=== PATIENT | female | born 1975 | race American Indian/Alaskan Native ===

== ENCOUNTER 2018-04-06 23:25 | Inpatient (IN) | payer MEDICAID ==
[2018-04-06] MEDS ORDERED: ASPIRIN PO ONE (23:40)
[2018-04-07 00:29] LABS: Basophils # (Auto) 0.1 K/mm3 (0.0-0.1); Basophils % (Auto) 0.8 % (0.0-1.8); Eosinophils # (Auto) 0.2 K/mm3 (0.0-0.4); Eosinophils % (Auto) 1.9 % (0.0-4.3); Hematocrit 40.1 % (30.3-42.9); Hemoglobin 14.2 gm/dl (10.1-14.3); Lymphocytes # (Auto) 3.5 K/mm3 (1.2-5.4); Mean Corpuscular HGB Conc 35 % (30-34); Mean Corpuscular Volume 84 fl (79-97); Monocytes # (Auto) 0.3 K/mm3 (0.0-0.8); Monocytes % (Auto) 4.2 % (0.0-7.3); Platelet Count 333 K/mm3 (140-440); Red Blood Count 4.78 M/mm3 (3.65-5.03); Red Cell Distribution Width 12.8 % (13.2-15.2)
[2018-04-07 00:45] LABS: BUN/Creatinine Ratio 21; Blood Urea Nitrogen 15 mg/dL (7-17); Calcium 10.1 mg/dL (8.4-10.2); Hemolysis Index 8
[2018-04-07] MEDS ORDERED: NITRO-BID 2% TP ONE (00:57)
--- NOTE | 2018-04-07 01:02 | Emergency Department Report ---
HPI - General Chief Complaint: Chest Pain Time Seen by Provider: 04/07/18 00:48 - HPI HPI: Room 10 The patient is a 43-year-old female presenting with chief complaint of chest pain. Patient states 6 months ago she had an episode of palpitations and near syncope. Last month she states she had left-sided chest pain sharp for 2 days but then it resolved. This evening the patient states she became short of breath and dizzy with palpitations. Patient states she's had intermittent left- sided chest pain tonight that is sharp and stabbing in nature. Patient denies nausea/vomiting, diaphoresis or pleurisy. Patient denies cough. The patient states she's never had a stress test or cardiac catheterization Location: Left chest Duration: [See above] Quality: Sharp Severity: Currently 0/10 Modifying factors: [see above] Context: [see above] Mode of transportation: [not driving] ED Past Medical Hx - Past Medical History Previous Medical History?: Yes Hx Hypertension: Yes Hx Psychiatric Treatment: Yes (anxiety, panic attacks. bipolar.) - Surgical History Past Surgical History?: Yes Additional Surgical History: tubal ligation - Family History Family history: no significant - Social History Smoking Status: Former Smoker (none 2 years) Substance Use Type: None (denies illicit drug use) - Medications Home Medications: Home Medications Medication Instructions Recorded Confirmed Last Taken Type Ciprofloxacin HCl [Ciprofloxacin 500 mg PO Q12H #14 tab 03/26/15 Unknown Rx TAB] Fluconazole [Diflucan TAB] 150 mg PO ONCE #1 tablet 03/26/15 Unknown Rx Cyclobenzaprine [Flexeril] 10 mg PO TID PRN #20 tablet 07/10/15 Unknown Rx HYDROcodone/APAP 5-325 [[place] 1 each PO Q6HR PRN #10 tablet 07/10/15 Unknown Rx 5/325] Ibuprofen [Motrin 800 MG tab] 800 mg PO Q8HR PRN #30 tablet 07/10/15 Unknown Rx ED Review of Systems ROS: Stated complaint: ANXIETY Other details as noted in HPI Constitutional: denies: diaphoresis Eyes: denies: eye pain ENT: denies: throat pain Respiratory: shortness of breath Cardiovascular: chest pain, palpitations Endocrine: no symptoms reported Gastrointestinal: denies: nausea, vomiting Genitourinary: denies: dysuria Musculoskeletal: denies: back pain Neurological: denies: headache Physical Exam - Physical Exam Vital Signs: Vital Signs 04/06/18 23:31 Temperature 97.4 F L Pulse Rate 95 H Respiratory 18 Rate Blood Pressure 146/90 O2 Sat by Pulse 100 Oximetry Physical Exam: GENERAL: The patient is well-developed well-nourished female sitting on stretcher not appearing to be in acute distress. [] HEENT: Normocephalic. Atraumatic. Extraocular motions are intact. Patient has moist mucous membranes. NECK: Supple. Trachea midline CHEST/LUNGS: Clear to auscultation. There is no respiratory distress noted. HEART/CARDIOVASCULAR: Regular. There is no tachycardia. There is no gallop rub or murmur. ABDOMEN: Abdomen is soft, nontender. Patient has normal bowel sounds. There is no abdominal distention. SKIN: There is no rash. There is no diaphoresis. NEURO: The patient is awake, alert, and oriented. The patient is cooperative. The patient has normal speech MUSCULOSKELETAL: There is no evidence of acute injury. ED Course Vital Signs 04/06/18 23:31 Temperature 97.4 F L Pulse Rate 95 H Respiratory 18 Rate Blood Pressure 146/90 O2 Sat by Pulse 100 Oximetry ED Medical Decision Making - Lab Data Result diagrams: 04/07/18 00:03 04/07/18 00:03 Laboratory Tests 04/07/18 04/07/18 04/07/18 00:03 00:03 00:59 WBC 8.0 RBC 4.78 Hgb 14.2 Hct 40.1 MCV 84 MCH 30 MCHC 35 H RDW 12.8 L Plt Count 333 Lymph % (Auto) 44.0 H [place] % (Auto) 4.2 Eos % (Auto) 1.9 Baso % (Auto) 0.8 Lymph # 3.5 [place] # 0.3 Eos # 0.2 Baso # 0.1 Seg Neutrophils % 49.1 Seg Neutrophils # 3.9 D-Dimer 244.91 H Sodium 137 Potassium 3.8 Chloride 94.1 L Carbon Dioxide 29 Anion Gap 18 BUN 15 Creatinine 0.7 Estimated GFR > 60 BUN/Creatinine Ratio 21 Glucose 131 H Calcium 10.1 Troponin T < 0.010 - EKG Data -: EKG Interpreted by Ia EKG shows normal: sinus rhythm Rate: normal - EKG Data When compared to previous EKG there are: previous EKG unavailable Interpretation: nonspecific ST-T wave antelmo (T-wave inversion in lead V2) - Radiology Data Radiology results: image reviewed (chest x-ray) interpreted by me: Chest x-ray-no focal infiltrates, no pneumothorax - Differential Diagnosis ACS, PE, anxiety, pericarditis, GERD Critical care attestation.: If time is entered above; I have spent that time in minutes in the direct care of this critically ill patient, excluding procedure time. ED Disposition Clinical Impression: Chest pain, Shortness of breath Disposition: 09 OP ADMIT IP TO THIS HOSP Is pt being admited?: Yes Does the pt Need Aspirin: Yes Condition: Fair Instructions: Chest Pain (ED) Time of Disposition: 02:12 (hospitalist paged (Dr. Sujatha Adrian))
--- NOTE | 2018-04-07 02:19 | XRay Report ---
FINAL REPORT PROCEDURE: XR CHEST 1V AP TECHNIQUE: Chest radiograph anteroposterior view. CPT 67228 HISTORY: chest pain COMPARISON: No prior studies are available for comparison. FINDINGS: Heart: Normal. Mediastinum/Vessels: Normal. Lungs/Pleural space: Normal. Bony thorax: No acute osseous abnormality. Life support devices: None. IMPRESSION: No acute cardiopulmonary abnormality.
[2018-04-07] MEDS ORDERED: ZOFRAN IV PRN (03:15)
[2018-04-07] MEDS ORDERED: SODIUM CHLORIDE FLUSH SYRINGE 10 ML IV PRN ×2 (03:15)
[2018-04-07] MEDS ORDERED: TYLENOL PO PRN (03:15)
--- NOTE | 2018-04-07 04:00 | History and Physical Report ---
<FATOUMATA GAO - Last Filed: 04/07/18 04:00> History of Present Illness Date of examination: 04/07/18 Date of admission: 04/07/18 Chief complaint: chest pain and palpitation History of present illness: Pt is a 43-year-old female with PMHx of anxiety, bipolar depression, HTN, who presents to the ER with c/o chest pain a few hours prior to coming to the ER. Pt states that she woke up in the middle of the night with chest pain and pa lpitation, the pain was sudden and sharp, located on the left side of the chest with no radiation. Pt states that she has a history of of anxiety and panic attack, she had an episode of palpitation and syncope 6 months ago but this time is different because the chest pain was accompanied with palpitation, dizziness and SOB. Patient denies radiation of the pain to the left arm, she denies numbness, denies syncope, denies diaphoresis, denies nausea denies vomiting, denies recent illness, denies fever or chills. Pt was evaluated in the ER, EKG showed no STEMI criteria, cardiac enzyme is negative, pt was admitted to the ER for further evaluation and treatment. Past History Past Medical History: other (anxiet, bipolar depression, panic attack) Past Surgical History: No surgical history Social history: no significant social history Family history: no significant family history Medications and Allergies Allergies Allergy/AdvReac Type Severity Reaction Status Date / Time latex Allergy Unknown Verified 04/06/18 23:39 oxycodone Allergy Unknown Verified 04/06/18 23:39 sulfamethoxazole Allergy Unknown Verified 04/06/18 23:39 [From Bactrim] trimethoprim [From Bactrim] Allergy Unknown Verified 04/06/18 23:39 Home Medications Medication Instructions Recorded Confirmed Last Taken Type Ciprofloxacin HCl [Ciprofloxacin 500 mg PO Q12H #14 tab 03/26/15 Unknown Rx TAB] Fluconazole [Diflucan TAB] 150 mg PO ONCE #1 tablet 03/26/15 Unknown Rx Cyclobenzaprine [Flexeril] 10 mg PO TID PRN #20 tablet 07/10/15 Unknown Rx HYDROcodone/APAP 5-325 [[place] 1 each PO Q6HR PRN #10 tablet 07/10/15 Unknown Rx 5/325] Ibuprofen [Motrin 800 MG tab] 800 mg PO Q8HR PRN #30 tablet 07/10/15 Unknown Rx Active Meds: Active Medications Acetaminophen (Tylenol) 650 mg PO Q4H PRN PRN Reason: Pain MILD(1-3)/Fever >100.5/CARDOZO Ondansetron HCl (Zofran) 4 mg IV Q8H PRN PRN Reason: Nausea And Vomiting Sodium Chloride (Sodium Chloride Flush Syringe 10 Ml) 10 ml IV BID J LUIS Sodium Chloride (Sodium Chloride Flush Syringe 10 Ml) 10 ml IV PRN PRN PRN Reason: LINE FLUSH Sodium Chloride (Sodium Chloride Flush Syringe 10 Ml) 10 ml IV PRN PRN PRN Reason: LINE FLUSH Review of Systems Constitutional: weight loss Integumentary: deferred Psychiatric: anxiety, depression, anxiety attacks Exam - Constitutional Vitals: Temp Pulse Resp BP Pulse Ox 97.4 F L 71 21 136/76 100 04/06/18 23:31 04/07/18 01:28 04/07/18 01:28 04/07/18 01:28 04/07/18 01:28 General appearance: Present: no acute distress - EENT Eyes: Present: EOM intact ENT: hearing intact - Neck Neck: Present: supple, normal ROM - Respiratory Respiratory effort: normal Respiratory: bilateral: CTA - Cardiovascular Rhythm: regular - Extremities Extremities: no ischemia Peripheral Pulses: within normal limits - Abdominal General gastrointestinal: Present: deferred - Rectal Rectal Exam: deferred - Integumentary Integumentary: Present: warm, dry - Musculoskeletal Musculoskeletal: strength equal bilaterally - Psychiatric Psychiatric: appropriate mood/affect, cooperative - Neurologic Neurologic: focal deficits, moves all extremities Results - Labs CBC & Chem 7: 04/07/18 00:03 04/07/18 00:03 Labs: Laboratory Last Values WBC 8.0 K/mm3 (4.5-11.0) 04/07/18 00:03 RBC 4.78 M/mm3 (3.65-5.03) 04/07/18 00:03 Hgb 14.2 gm/dl (10.1-14.3) 04/07/18 00:03 Hct 40.1 % (30.3-42.9) 04/07/18 00:03 MCV 84 fl (79-97) 04/07/18 00:03 MCH 30 pg (28-32) 04/07/18 00:03 MCHC 35 % (30-34) H 04/07/18 00:03 RDW 12.8 % (13.2-15.2) L 04/07/18 00:03 Plt Count 333 K/mm3 (140-440) 04/07/18 00:03 Lymph % (Auto) 44.0 % (13.4-35.0) H 04/07/18 00:03 [place] % (Auto) 4.2 % (0.0-7.3) 04/07/18 00:03 Eos % (Auto) 1.9 % (0.0-4.3) 04/07/18 00:03 Baso % (Auto) 0.8 % (0.0-1.8) 04/07/18 00:03 Lymph # 3.5 K/mm3 (1.2-5.4) 04/07/18 00:03 [place] # 0.3 K/mm3 (0.0-0.8) 04/07/18 00:03 Eos # 0.2 K/mm3 (0.0-0.4) 04/07/18 00:03 Baso # 0.1 K/mm3 (0.0-0.1) 04/07/18 00:03 Seg Neutrophils % 49.1 % (40.0-70.0) 04/07/18 00:03 Seg Neutrophils # 3.9 K/mm3 (1.8-7.7) 04/07/18 00:03 D-Dimer 244.91 ng/mlDDU (0-234) H 04/07/18 00:59 Sodium 137 mmol/L (137-145) 04/07/18 00:03 Potassium 3.8 mmol/L (3.6-5.0) 04/07/18 00:03 Chloride 94.1 mmol/L (98-107) L 04/07/18 00:03 Carbon Dioxide 29 mmol/L (22-30) 04/07/18 00:03 Anion Gap 18 mmol/L 04/07/18 00:03 BUN 15 mg/dL (7-17) 04/07/18 00:03 Creatinine 0.7 mg/dL (0.7-1.2) 04/07/18 00:03 Estimated GFR > 60 ml/min 04/07/18 00:03 BUN/Creatinine Ratio 21 % 04/07/18 00:03 Glucose 131 mg/dL (65-100) H 04/07/18 00:03 Calcium 10.1 mg/dL (8.4-10.2) 04/07/18 00:03 Troponin T < 0.010 ng/mL (0.00-0.029) 04/07/18 00:03 Assessment and Plan Assessment and plan: 1. Chest pain r/o ACS 2. Bipolar disorder 3. Panic attack 4.Hypertension Plan: Admit to [facility] for chest pain Continue CE Q6hr x2 more Nitro PRN for chest pain Repeat EKG in am Morphine PRN for chest pain Xanax PRN for anxiety Resume home meds CT chest pending Stress test in am Further plan per hospital course Pt's condition and plan of care discussed with with Dr Adrian Advance Directives: Yes VTE prophylaxis?: Mechanical Plan of care discussed with patient/family: Yes <MAKEDA ADRIAN - Last Filed: 04/07/18 05:17> History of Present Illness Date of admission: 04/07/18 03:38 Medications and Allergies Active Meds: Active Medications Acetaminophen (Tylenol) 650 mg PO Q4H PRN PRN Reason: Pain MILD(1-3)/Fever >100.5/CARDOZO Ondansetron HCl (Zofran) 4 mg IV Q8H PRN PRN Reason: Nausea And Vomiting Sodium Chloride (Sodium Chloride Flush Syringe 10 Ml) 10 ml IV BID J LUIS Sodium Chloride (Sodium Chloride Flush Syringe 10 Ml) 10 ml IV PRN PRN PRN Reason: LINE FLUSH Sodium Chloride (Sodium Chloride Flush Syringe 10 Ml) 10 ml IV PRN PRN PRN Reason: LINE FLUSH Exam - Constitutional Vitals: Temp Pulse Resp BP Pulse Ox 97.4 F L 71 21 136/76 100 04/06/18 23:31 04/07/18 01:28 04/07/18 01:28 04/07/18 01:28 04/07/18 01:28 Results - Labs CBC & Chem 7: 04/07/18 03:50 04/07/18 03:50 Labs: Laboratory Last Values WBC 7.8 K/mm3 (4.5-11.0) 04/07/18 03:50 RBC 4.85 M/mm3 (3.65-5.03) 04/07/18 03:50 Hgb 14.0 gm/dl (10.1-14.3) 04/07/18 03:50 Hct 41.9 % (30.3-42.9) 04/07/18 03:50 MCV 86 fl (79-97) 04/07/18 03:50 MCH 29 pg (28-32) 04/07/18 03:50 MCHC 33 % (30-34) 04/07/18 03:50 RDW 12.9 % (13.2-15.2) L 04/07/18 03:50 Plt Count 292 K/mm3 (140-440) 04/07/18 03:50 Lymph % (Auto) 29.7 % (13.4-35.0) 04/07/18 03:50 [place] % (Auto) 5.0 % (0.0-7.3) 04/07/18 03:50 Eos % (Auto) 2.4 % (0.0-4.3) 04/07/18 03:50 Baso % (Auto) 1.1 % (0.0-1.8) 04/07/18 03:50 Lymph # 2.3 K/mm3 (1.2-5.4) 04/07/18 03:50 [place] # 0.4 K/mm3 (0.0-0.8) 04/07/18 03:50 Eos # 0.2 K/mm3 (0.0-0.4) 04/07/18 03:50 Baso # 0.1 K/mm3 (0.0-0.1) 04/07/18 03:50 Seg Neutrophils % 61.8 % (40.0-70.0) 04/07/18 03:50 Seg Neutrophils # 4.9 K/mm3 (1.8-7.7) 04/07/18 03:50 D-Dimer 244.91 ng/mlDDU (0-234) H 04/07/18 00:59 Sodium 133 mmol/L (137-145) L 04/07/18 03:50 Potassium 3.4 mmol/L (3.6-5.0) L 04/07/18 03:50 Chloride 92.8 mmol/L (98-107) L 04/07/18 03:50 Carbon Dioxide 26 mmol/L (22-30) 04/07/18 03:50 Anion Gap 18 mmol/L 04/07/18 03:50 BUN 14 mg/dL (7-17) 04/07/18 03:50 Creatinine 0.7 mg/dL (0.7-1.2) 04/07/18 03:50 Estimated GFR > 60 ml/min 04/07/18 03:50 BUN/Creatinine Ratio 20 % 04/07/18 03:50 Glucose 100 mg/dL (65-100) 04/07/18 03:50 Calcium 9.4 mg/dL (8.4-10.2) 04/07/18 03:50 Troponin T < 0.010 ng/mL (0.00-0.029) 04/07/18 02:53 Assessment and Plan Assessment and plan: 43-year-old with a history of bipolar, anxiety, hypertension comes emergency room with complaints of chest pain. She had chest pain 6 months ago but it occur on the right side. This time the chest pain is on the left, constant, described as a sharp pain and associated with shortness of breath. Check stress test, CT chest. Patient seen and examined with FAB[employer]IC WORKER [employer]TER.
[2018-04-07 04:17] LABS: BUN/Creatinine Ratio 20; Blood Urea Nitrogen 14 mg/dL (7-17); Calcium 9.4 mg/dL (8.4-10.2); Hemolysis Index 105
[2018-04-07 04:29] LABS: Basophils # (Auto) 0.1 K/mm3 (0.0-0.1); Basophils % (Auto) 1.1 % (0.0-1.8); Eosinophils # (Auto) 0.2 K/mm3 (0.0-0.4); Eosinophils % (Auto) 2.4 % (0.0-4.3); Hematocrit 41.9 % (30.3-42.9); Lymphocytes # (Auto) 2.3 K/mm3 (1.2-5.4); Lymphocytes % (Auto) 29.7 % (13.4-35.0); Mean Corpuscular HGB Conc 33 % (30-34); Mean Corpuscular Volume 86 fl (79-97); Monocytes # (Auto) 0.4 K/mm3 (0.0-0.8); Platelet Count 292 K/mm3 (140-440); Red Blood Count 4.85 M/mm3 (3.65-5.03); Red Cell Distribution Width 12.9 % (13.2-15.2)
[2018-04-07] MEDS ORDERED: BENADRYL IV ONE ×2 (08:31→08:32)
[2018-04-07] MEDS ORDERED: DECADRON IV ONE ×2 (08:31)
[2018-04-07] MEDS ORDERED: BENADRYL ONE (08:34)
[2018-04-07] MEDS ORDERED: LEXISCAN IV ONE ×2 (09:21→09:24)
--- NOTE | 2018-04-07 09:54 | Cat Scan Report ---
FINAL REPORT EXAM: CT ANGIO CHEST HISTORY: chest pain TECHNIQUE: CT angiography of the chest was performed. A IV contrast was administered. Axial images and coronal and sagittal reformatted images. PRIORS: None. FINDINGS: There is no aortic dissection seen. There are no filling defects seen within the pulmonary arterial circulation to suggest pulmonary embo lism. There is no significant mediastinal or hilar mass seen. The lungs are clear. There is no pneumothorax seen. There are no pleural effusions seen. IMPRESSION: There is no pulmonary embolism or aortic dissection seen.
[2018-04-07] MEDS ORDERED: SODIUM CHLORIDE FLUSH SYRINGE 10 ML IV SCH (10:00)
--- NOTE | 2018-04-07 12:08 | Event Note ---
Date: 04/07/18
[2018-04-07] MEDS ORDERED: K-DUR PO ONE (14:16)
--- NOTE | 2018-04-07 15:54 | Discharge Summary ---
Providers - Providers Date of Admission: 04/07/18 03:38 Date of discharge: 04/07/18 Attending physician: NICOLE MORROW 04/07/18 Consult to Cardiac Rehabilitation [CONS] Routine Reason For Exam: Phase I Primary care physician: SHERI FIELDS Hospitalization Reason for admission: chest pain Condition: Fair Pertinent studies: CT chest; negative for PE Chest x-ray; no acute abnormality noted Stress test negative for reversible ischemia, normal ejection fraction[report by cardiology] Hospital course: 43-year-old female patient with significant history of anxiety bipolar depression and hypertension was admitted through emergency room with chest pain and palpitations, Patient was initially evaluated and admitted to the hospital symptomatically managed Had mild elevation of d-dimer is, CTA chest is negative for PE, Subsequently underwent stress test which was negative for reversible ischemia The patient's chest pain is noncardiac and probably secondary to gastroesophageal reflux disease, as well as panic attack Patient's symptoms significantly improved, Today patient is comfortable no new complaints Vital signs reviewed, less chest pain or shortness of breath Alert awake oriented 3, Vital signs reviewed Patient is hemodynamically and clinically stable at discharge Advised 1 day work excuse, advised to see primary care physician in 3-4 days Should she have recurrent chest pain she may need to see marketing communications assistant for further evaluation or go to emergency room Patient is hemodynamically and clinically stable at discharge Patient strongly advised see behavioral health/psychiatrist for further evaluation and management of her psych problems Patient and family members verbalized understanding Discharge diagnosis; --Atypical chest pain; stress test negative Symptoms probably secondary to GERD or panic attack episode --GERD; Protonix --History of panic disorder/anxiety; follow behavioral health/psychiatric just --Obesity; BMI 36.8, advised weight reduction --Hypokalemia; corrected Disposition: DC-01 TO HOME OR SELFCARE Time spent for discharge: 32 min Core Measure Documentation - Palliative Care Palliative Care/ Comfort Measures: Not Applicable - Core Measures Any of the following diagnoses?: none Exam - Constitutional Vitals: Temp Pulse Resp BP Pulse Ox 98.4 F 83 20 122/69 99 04/07/18 08:02 04/07/18 10:50 04/07/18 08:02 04/07/18 10:50 04/07/18 08:02 General appearance: Present: no acute distress, well-nourished - EENT Eyes: Present: PERRL, EOM intact - Neck Neck: Present: supple, normal ROM - Respiratory Respiratory effort: normal Respiratory: bilateral: diminished, negative: rales, rhonchi, wheezing - Cardiovascular Rhythm: regular Heart Sounds: Present: S1 & S2 - Extremities Extremities: no ischemia, No edema - Abdominal General gastrointestinal: Present: soft, non-tender, non-distended, normal bowel sounds - Integumentary Integumentary: Present: clear, warm - Musculoskeletal Musculoskeletal: strength equal bilaterally - Psychiatric Psychiatric: appropriate mood/affect, cooperative - Neurologic Neurologic: CNII-XII intact, moves all extremities Plan Activity: no restrictions Diet: regular Additional Instructions: If you have recurrent chest pain, contact M.D. or go to emergency room. Advised to seek private marketing communications assistant Dr. Koko Adrian as needed Follow up with: SHERI FIELDS MD [Primary Care Provider] - 7 Days KOKO ADRIAN MD [Staff Physician] - 14 Days Forms: Work/School Release Form Prescriptions: Pantoprazole Sodium [Protonix] 40 mg PO DAILY #20 granpkt.
[2018-04-07 16:46] VITALS: BP 133/85
--- NOTE | 2018-04-07 18:53 | Treadmill Report ---
The patient is brought to the Cardiology lab and Lexiscan stress test is performed. The patient tolerated the procedure well. Post-stress images revealed fairly homogeneous distribution of the isotope with no significant reversibility to indicate ischemia. Accompanying gated study shows excellent systolic function with no significant wall motion abnormalities. Calculated ejection fraction is noted to be 67%. IMPRESSION: 1. Nuclear stress test is negative for reversible defects to indicate ischemia. 2. Good systolic function with no wall motion abnormalities. Calculated ejection fraction is 67%. Suggest clinical correlation. JOB# [id number] EFRAIN/NTS
== END 2018-04-07 18:47 | disposition home or self-care (01) | DRG 392 ==
LOC: ED 23:25 → 4A 04-07 03:38
PROVIDERS: ADMIT Internal Medicine; ATTEND Internal Medicine
DX: K21.9 Gastro-esophageal reflux disease without esophagitis (principal); F41.9 Anxiety disorder, unspecified; F31.9 Bipolar disorder, unspecified; I10 Essential (primary) hypertension; F41.0 Panic disorder [episodic paroxysmal anxiety]; E87.6 Hypokalemia; E66.9 Obesity, unspecified; Z68.36 Body mass index [BMI] 36.0-36.9, adult; Z71.3 Dietary counseling and surveillance; Z88.5 Allergy status to narcotic agent; Z91.040 Latex allergy status; Z79.899 Other long term (current) drug therapy; Z88.2 Allergy status to sulfonamides; Z98.51 Tubal ligation status
CPT/HCPCS: 36415; 71045; 71275; 78452; 80048; 84484; 85025; 85379; 93005; 93010; 93017; G0378; A9502; J1100; J1200; J2785; Q9967

== ENCOUNTER 2018-11-30 08:08 | Emergency (ER) | payer BC, MEDICAID ==
[2018-11-30 08:40] VITALS: BP 130/84
[2018-11-30] MEDS ORDERED: DELTASONE PO ONE (10:23)
[2018-11-30] MEDS ORDERED: TORADOL IM ONE (10:23)
--- NOTE | 2018-11-30 10:28 | Emergency Department Report ---
ED Back Pain/Injury HPI - General Chief Complaint: Back Pain/Injury Stated Complaint: LOWER SIDE PAIN Time Seen by Provider: 11/30/18 09:29 Source: patient Limitations: No Limitations - History of Present Illness Initial Comments: This is a 43-year-old female nontoxic, well nourished in appearance, no acute signs of distress presents to the ED with c/o of acute on chronic lower back pain. Patient stated that the past 2 days she was moving and developed this pain. Patient denies any radiation of pain. Patient denies any trauma. Denies any bladder or bowel instability. Patient denies any urinary symptoms. Denies any fever, chills, nausea, vomiting, headache, stiff neck, chest pain or shortness of breath. Patient denies any numbness or tingling. MD Complaint: back pain -: days(s) (2) Similar Symptoms Previously: Yes Place: home Radiation: none Severity: mild Severity scale (0 -10): 8 Quality: aching Consistency: intermittent Improves With: immobilization, sitting upright Worsens With: movement, walking Context: while lifting, turning/twisting Associated Symptoms: denies other symptoms. denies: confusion, weakness, chest pain, numbness, difficulty walking, cough, difficulty urinating, diaphoresis, incontinence, fever/chills, constipation, headaches, abdominal pain, loss of appetite, malaise, nausea/vomiting, rash, seizure, shortness of breath, syncope - Related Data Previous Rx's Medication Instructions Recorded Last Taken Type Ciprofloxacin HCl [Ciprofloxacin 500 mg PO Q12H #14 tab 03/26/15 Unknown Rx TAB] Cyclobenzaprine [Flexeril 10 MG 10 mg PO TID PRN #20 tablet 07/10/15 Unknown Rx TAB] HYDROcodone/APAP 5-325 [[place] 1 each PO Q6HR PRN #10 tablet 07/10/15 Unknown Rx 5-325 mg TAB] Pantoprazole Sodium [Protonix] 40 mg PO DAILY #20 04/07/18 Unknown Rx Cyclobenzaprine [Flexeril] 10 mg PO QHS PRN #10 tablet 11/30/18 Unknown Rx Ibuprofen [Motrin] 600 mg PO Q8H PRN #20 tablet 11/30/18 Unknown Rx Allergies Allergy/AdvReac Type Severity Reaction Status Date / Time garlic Allergy Swelling Verified 11/30/18 08:16 latex Allergy Unknown Verified 04/06/18 23:39 oxycodone Allergy Unknown Verified 04/06/18 23:39 sulfamethoxazole Allergy Unknown Verified 04/06/18 23:39 [From Bactrim] trimethoprim [From Bactrim] Allergy Unknown Verified 04/06/18 23:39 ED Review of Systems ROS: Stated complaint: LOWER SIDE PAIN Other details as noted in HPI Constitutional: denies: chills, fever Eyes: denies: eye pain, eye discharge, vision change ENT: denies: ear pain, throat pain Respiratory: denies: cough, shortness of breath, wheezing Cardiovascular: denies: chest pain, palpitations Endocrine: no symptoms reported Gastrointestinal: denies: abdominal pain, nausea, diarrhea Genitourinary: denies: urgency, dysuria, discharge Musculoskeletal: back pain. denies: joint swelling, arthralgia Skin: denies: rash, lesions Neurological: denies: headache, weakness, paresthesias Psychiatric: denies: anxiety, depression Hematological/Lymphatic: denies: easy bleeding, easy bruising ED Past Medical Hx - Past Medical History Previous Medical History?: Yes Hx Hypertension: Yes Hx Psychiatric Treatment: Yes (anxiety, panic attacks. bipolar.) - Surgical History Past Surgical History?: Yes Additional Surgical History: tubal ligation - Social History Smoking Status: Former Smoker - Medications Home Medications: Home Medications Medication Instructions Recorded Confirmed Last Taken Type Ciprofloxacin HCl [Ciprofloxacin 500 mg PO Q12H #14 tab 03/26/15 04/07/18 Unknown Rx TAB] Cyclobenzaprine [Flexeril 10 MG 10 mg PO TID PRN #20 tablet 07/10/15 04/07/18 Unknown Rx TAB] HYDROcodone/APAP 5-325 [[place] 1 each PO Q6HR PRN #10 tablet 07/10/15 04/07/18 Unknown Rx 5-325 mg TAB] Pantoprazole Sodium [Protonix] 40 mg PO DAILY #20 04/07/18 Unknown Rx Cyclobenzaprine [Flexeril] 10 mg PO QHS PRN #10 tablet 11/30/18 Unknown Rx Ibuprofen [Motrin] 600 mg PO Q8H PRN #20 tablet 11/30/18 Unknown Rx ED Physical Exam - General Limitations: No Limitations General appearance: alert, in no apparent distress - Head Head exam: Present: atraumatic, normocephalic - Eye Eye exam: Present: normal appearance - Neck Neck exam: Present: normal inspection, full ROM. Absent: tenderness, meningismus, lymphadenopathy - GI/Abdominal GI/Abdominal exam: Present: soft, normal bowel sounds. Absent: distended, tenderness, guarding, rebound, rigid, diminished bowel sounds - Extremities Exam Extremities exam: Present: normal inspection, full ROM, normal capillary refill. Absent: tenderness - Back Exam Back exam: Present: normal inspection, full ROM, paraspinal tenderness (lumbar paraspinal). Absent: tenderness, CVA tenderness (R), CVA tenderness (L), muscle spasm, vertebral tenderness, rash noted - Expanded Back Exam Expanded Back exam: Absent: saddle anesthesia Back exam: Negative Straight Leg Raising: Left, Right - Neurological Exam Neurological exam: Present: alert, oriented X3, normal gait - Psychiatric Psychiatric exam: Present: normal affect, normal mood - Skin Skin exam: Present: warm, dry, intact, normal color. Absent: rash ED Course Vital Signs 11/30/18 08:39 Temperature 98.2 F Pulse Rate 86 Respiratory 20 Rate Blood Pressure 130/84 [Right] O2 Sat by Pulse 100 Oximetry - Reevaluation(s) Reevaluation #1: 11/30/18 10:26 Patient is speaking in full sentences with no signs of distress noted. ED Medical Decision Making - Medical Decision Making This is a 43-year-old female that presents with low back strain. Patient is stable was examined by me. There is no spinal tenderness. There is no cauda equina syndrome during examination. No bladder or bowel instability. Patient received Toradol 60 mg IM and prednisone in the ED which stated that her symptoms has resolved and subsided. Patient is discharged with muscle relaxant and Motrin. Patient was instructed not to operate any machinery while taking muscle relaxant as they cause her drowsiness. Patient was referred to Follow-up with a primary care doctor in 3-5 days or if symptoms worsen and continue return to emergency room as soon as possible. At time of discharge, the patient does not seem toxic or ill in appearance. No acute signs of distress noted. Patient agrees to discharge treatment plan of care. No further questions noted by the patient. This chart is dictated with using [employer] Critical care attestation.: If time is entered above; I have spent that time in minutes in the direct care of this critically ill patient, excluding procedure time. ED Disposition Clinical Impression: Low back strain Qualifiers: Encounter type: initial encounter Qualified Code(s): S39.012A - Strain of muscle, fascia and tendon of lower back, initial encounter Disposition: TO HOME OR SELFCARE Is pt being admited?: No Does the pt Need Aspirin: No Condition: Stable Instructions: Muscle Strain (ED), Cyclobenzaprine (By mouth) Additional Instructions: Follow-up with your primary care doctor in 3-5 days or if symptoms worsen such as bladder or bowel stability, chest pain, short of breath, numbness or tingling sensation in extremities, headache, dizziness, visual changes, nausea vomiting, or abdominal pain, return back to emergency room as was possible. Take ibuprofen and Flexeril as prescribed. Do not operate heavy machinery while taking Flexeril due to sedation Prescriptions: Cyclobenzaprine [Flexeril] 10 mg PO QHS PRN #10 tablet PRN Reason: Muscle Spasm Ibuprofen [Motrin] 600 mg PO Q8H PRN #20 tablet PRN Reason: Pain Referrals: PRIMARY CARE, [Primary Care Provider] - 3-5 Days MARLYS BURR MD [Staff Physician] - 3-5 Days [facility] [Outside] - 3-5 Days [facility] [Outside] - 3-5 Days Forms: Work/School Release Form(ED), Accompanied Note
== END 2018-11-30 11:24 | disposition home or self-care (01) ==
LOC: ED 08:08
DX: S39.012A Strain of muscle, fascia and tendon of lower back, initial encounter (principal); I10 Essential (primary) hypertension; F31.9 Bipolar disorder, unspecified; Z98.51 Tubal ligation status; Z87.891 Personal history of nicotine dependence; Z79.899 Other long term (current) drug therapy; Z91.013 Allergy to seafood; Z91.040 Latex allergy status; Z88.2 Allergy status to sulfonamides; Z88.6 Allergy status to analgesic agent
CPT/HCPCS: 96372; 99282; J1885; J7512